=== PATIENT | male | born 1960 | race Caucasian/White ===

== ENCOUNTER 2021-08-15 10:10 | Emergency (ER) | payer BC ==
[2021-08-15] MEDS ORDERED: Sodium Chloride 0.9% 50 ML SDV FLUSH ONE (12:23)
[2021-08-15] MEDS ORDERED: Diatrizoate Meglumine/Diatrizoate Sodium 37% 30 ML Bottle PO SCH (12:30)
[2021-08-15] MEDS ORDERED: Iopamidol 612 MG/ML 100 ML Bottle IV SCH (12:30)
[2021-08-15] MEDS ORDERED: metroNIDAZOLE 500 MG Tab ONE (13:00)
[2021-08-15] MEDS ORDERED: Ciprofloxacin 500 MG Tab ONE ×2 (13:00)
== END 2021-08-15 13:38 | disposition home or self-care (01) ==
LOC: LB.ED 10:10
DX: K57.32 Diverticulitis of large intestine without perforation or abscess without bleeding (principal); R91.1 Solitary pulmonary nodule; I10 Essential (primary) hypertension
CPT/HCPCS: 36415; 74177; 80053; 81003; 82150; 85025; 99284-25; A9270-GY; Q9963